=== PATIENT | female | born 1985 | race Caucasian/White ===

== ENCOUNTER 2024-01-23 14:50 | Outpatient (CLI) | payer OTHER | END 2024-01-23 17:28 | disposition home or self-care (01) | LOC: LAB.N 14:50 | PROVIDERS: ATTEND Physician Assistant Medical | DX: N39.0 Urinary tract infection, site not specified (principal) | CPT/HCPCS: 87086 ==

== ENCOUNTER 2024-02-25 15:15 | Outpatient (CLI) | payer OTHER ==
[2024-02-25 23:10] LABS: CHLAMYDIA TRACHOMATIS DNA NEGATIVE (NEGATIVE); NEISSERIA GONORRHOEAE DNA NEGATIVE (NEGATIVE)
[2024-02-26 17:22] LABS: BACTERIAL VAGINOSIS DNA POSITIVE (NEGATIVE); CANDIDA GLABRATA DNA NEGATIVE (NEGATIVE); CANDIDA GROUP DNA NEGATIVE (NEGATIVE); CANDIDA KRUSEI DNA NEGATIVE (NEGATIVE); TRICHOMONAS VAGINALIS DNA NEGATIVE (NEGATIVE)
== END 2024-02-25 15:30 | disposition home or self-care (01) ==
LOC: LAB.N 15:15
PROVIDERS: ATTEND Nurse Practitioner
DX: N39.0 Urinary tract infection, site not specified (principal)
CPT/HCPCS: 81514; 87086; 87491; 87591; 87661

== ENCOUNTER 2024-04-15 08:00 | Outpatient (CLI) | payer OTHER | END 2024-04-15 23:59 | disposition home or self-care (01) | LOC: LAB 08:00 | PROVIDERS: ATTEND Urology | DX: R31.9 Hematuria, unspecified (principal) | CPT/HCPCS: 87086 ==

== ENCOUNTER 2024-04-21 08:00 | Outpatient (CLI) | payer OTHER | END 2024-04-21 23:59 | disposition home or self-care (01) | LOC: LAB 08:00 | PROVIDERS: ATTEND Urology | DX: R30.0 Dysuria (principal) | CPT/HCPCS: 87086 ==

== ENCOUNTER 2024-04-28 19:27 | Outpatient (CLI) | payer OTHER ==
--- NOTE | 2024-04-29 08:24 | Ultrasound Report ---
PROCEDURE: Renal (Retroperitoneal) INDICATIONS: RECURRENT HX OF UTI'S TECHNIQUE: Real-time scanning was performed of the retroperitoneal organs, with image documentation. COMPARISON: None. FINDINGS: Kidneys: Kidneys are normal in size. Right kidney measures 10.6 cm long; left kidney measures 10.4 cm long. Right renal cortical thickness is 1.2 cm; left renal cortical thickness is 1.7 cm. Cortical echogenic lesion in the interpolar region of the left kidney measuring 7 x 5 mm. Nonobstructing ston e in the superior calyx of the left kidney measuring 4 mm. Bladder: Pre-void bladder volume is 844 mL. Post-void residual is 44 mL. Pre-void images demonstra te no intraluminal masses or stones. On pre-void images, both ureteral jets are noted with color Dop pler interrogation. (Of note, ureteral jets may not be detectable in up to 25% of cases due to insuf ficient differences in specific gravity between ureteral and bladder urine). Miscellaneous: No free abdominal fluid. IMPRESSION: Echogenic focus in the left renal cortex, most consistent with a benign angiomyolipoma. 4 mm nonobstructing left-sided nephrolithiasis. Postvoid residual measures 44 ml, greater than expected in this age group. Query retained urine as a source of recurrent infection. Reviewed by: Yasmani Causey MD on 04/29/2024 8:23 AM PDT Approved by: Yasmani Causey MD on 04/29/2024 8:23 AM PDT Station ID: [id number]
== END 2024-04-28 19:28 | disposition home or self-care (01) ==
LOC: DI 19:27
PROVIDERS: ATTEND Urology
DX: N20.0 Calculus of kidney (principal); R33.9 Retention of urine, unspecified

== ENCOUNTER 2024-05-27 14:00 | Outpatient (CLI) | payer OTHER | END 2024-05-27 14:15 | disposition home or self-care (01) | LOC: LAB.N 14:00 | PROVIDERS: ATTEND Physician Assistant Medical | DX: R30.0 Dysuria (principal) | CPT/HCPCS: 87086 ==